=== PATIENT | female | born 1990 | race Caucasian/White ===

== ENCOUNTER 2025-06-02 02:25 | Emergency (ER) | payer BC, SELFPAY ==
[2025-06-02 02:27] VITALS: BP 135/108
[2025-06-02] MEDS: ZOFRAN 4 MG IV (03:16)
[2025-06-02] MEDS: NSS 1000 IV (03:16)
[2025-06-02] MEDS: DILAUDID 0.5 MG IV ×2 (03:16→04:03)
--- NOTE | 2025-06-02 03:28 | ED.GENMED ---
History of Present Illness
General
Chief Complaint: Problems
Source: patient
Exam Limitations: none
Time Seen by Provider: 06/02/25 02:53
Nursing documentation reviewed up to this point in time: agreed with except (Patient reports being 10 weeks , not 13 weeks )
History of Present Illness
History of Present Illness:
The patient is a 34-year-old female 1 para 0 with last menstrual period March 24 approximately 10 weeks , presenting with bleeding and cramping associated with her first . She reports that the bleeding began 3-1/2 days ago,
light spotting at that time but then this evening noted heavy bleeding passing clots accompanied with moderate lower abdominal cramping. She notes passing large clots, she is unsure if she has passed anything that looks like a gestational sac. She
has not experienced lightheadedness. She denies nausea nor vomiting. The patient resides in [place], she was scheduled for her first ultrasound next week. The patient is currently in town visiting and was attending a summer class.
No history of bleeding disorders.
Her only daily medications are Vy and vitamins.
Past History
Past History
ED Past Medical History: Other (Seasonal allergies)
ED Past Surgical History: Tonsilectomy and Other (Breast reduction)
Social History
Tobacco: Non-smoker
Alcohol: None
Personal: Single
Living: with family
Employment: Employed
Family History
Family History: Other (Noncontributory)
Phy Exam
Physical Exam
Physical Exam:
GENERAL: 34-year-old overweight woman appears her stated age, awake and alert, pleasant, appears in no acute distress. Hemodynamically stable.
EYE: anicteric
NECK: Supple, nontender, no meningismus, no significant adenopathy.
ENT: oral mucosa is moist. No rhinorrhea.
CARDIAC: Regular rate and rhythm. no murmur.
LUNGS: Clear breath sounds bilaterally, no acute respiratory distress, no wheezes/rales/rhonchi
ABDOMEN: Rotund, soft, nondistended, minimal tenderness generalized to the lower abdomen with deep palpation only, no r/g, no cvat. normoactive BS.
NEUROLOGICAL: Alert and oriented x3, no focal neuro deficits. Gait is steady.
SKIN: Warm and dry, normal color, skin intact. No rash.
MUSCULOSKELETAL: No C/C/E. peripheral pulses are full and equal b/l. No palpable tenderness.
PSYCH: Normal and appropriate interaction.
Course
Orders/Labs/Results
Orders:
Orders
06/02/25 02:54
0.9% Sodium Chloride 1000 ml [Nss] 1,000 ml IV BOLUS
06/02/25 03:04
US 1st Trimester Urgent
Comment:
Reason For Exam: LMP 03/24/25. bleeding, cramping tonight
06/02/25 03:05
HYDROmorphone [Dilaudid] 0.5 mg IV NOW STA
Ondansetron Injectable [Zofran] 4 mg IV NOW STA
06/02/25 03:11
Blood Group&Type Urgent
Beta HCG Quantitative Urgent
Is this a screen?: No
Complete Blood Count/With Diff Urgent
Comprehensive Metabolic Panel Urgent
06/02/25 03:43
ABO2 Routine
BBK Wristband Number:
Associate notified that ABO2 has been ordered: LIZABETH
Date: 06/02/25
Time: 03:23
Gate Guard ID: [id number]
06/02/25 04:01
HYDROmorphone [Dilaudid] 0.5 mg IV NOW STA
06/02/25 05:39
Pathology LDRP [LDRP Pathology] Routine
Date Specimen was Collected: 06/02/25
Pre-Operative Diagnosis: 10-week
Post-Operative Diagnosis: Completed miscarriage
Operative Procedure: Completed miscarriage
Clinical History: Approximately 10-week with last menstrual period March 24, 2025.
Gestational Age: 10 weeks
Tissue Submitted: Other
Other Tissue Submitted: Products of conception
Time Specimen placed in Formalin: 06:00
Abnormal Lab Results
06/02/25
03:11
MCV 77.4 L fL
(81.0-99.0)
MCH 26.1 L pg
(27.0-31.0)
Plt Count 424 H 10^3/uL
(130-400)
Absolute Neuts (auto) 6.9 H 10^3/uL
(1.4-6.5)
Absolute Monos (auto) 0.7 H 10^3/uL
(0.1-0.6)
Carbon Dioxide 21 L mmol/L
(22-30)
Creatinine 0.5 L mg/dL
(0.6-1.0)
Glucose 117 H mg/dl
(70-99)
06/02/25 03:11
06/02/25 03:11
Vital Signs
Initial and Last Documented VS:
Initial Vital Signs
Temp Pulse Resp BP Pulse Ox
98.2 F 102 20 135/108 98
06/02/25 02:27 06/02/25 02:27 06/02/25 02:27 06/02/25 02:27 06/02/25 02:27
Last Documented Vital Signs
Temp Pulse Resp BP Pulse Ox
98.2 F 102 20 135/108 98
06/02/25 02:27 06/02/25 02:27 06/02/25 02:27 06/02/25 02:27 06/02/25 03:37
Information
Weeks gestation: N/A (complete miscarriage at 10 weeks gestation)
Location: N/A (Complete miscarriage at 10 weeks gestation.)
MDM/Problems Addressed
Differential Diagnosis Includes:
The Differential Diagnosis includes, in no particular order and is not limited to:
1. Threatened miscarriage
2. Inevitable miscarriage
3. Subchorionic hemorrhage
4. Ectopic
5. Molar
6. Placental abruption
7. Intrauterine clot
8. Uterine fibroids
9. Hemorrhagic ovarian cyst
10. Urinary tract infection
MDM/Problems Addressed:
First trimester vaginal bleeding
Will check labs including quantitative hCG, type and Rh, CBC, complete metabolic panel.
Will initiate IV fluid with normal saline solution bolus. Will give small IV dose of Dilaudid along with Zofran as patient reports frequent side effects of nausea with anesthesia and pain medications.
Will plan for first trimester ultrasound.
Will consider CANTEEN OPERATOR consult depending on clinical course and ultrasound result.
*Radiology
Radiology exam reviewed: radiology read reviewed
*Pulse Oximetry
SaO2: 98
Oxygen Mode of Delivery: Room air
Patient hypoxic: no
*Critical Care Note
Total Time (30-74mins, 75-104mins- exclusive of procedures): Not Applicable
Update Note
Update Note:
06:15
Patient passed a large clot accompanied with some disorganized products of conception/ tissue and after doing so cramping and bleeding have markedly subsided.
She is now resting comfortably.
She remains hemodynamically stable.
Abdomen is soft without appreciable tenderness.
Ultrasound shows no intrauterine gestational sac. Endometrium measures 9.2 mm in thickness. No evidence for retained products of conception.
Labs revealed normal CBC. Type and Rh is O+. Beta hCG is quite low at 6000.
These results are all consistent with spontaneous miscarriage, likely completed.
Will continue to observe in the ER with plan to discharge to home with recommendations for follow-up with her melter clerk upon returning home this week.
Discussed importance of pelvic rest. Staying well-hydrated on a daily basis.
Products of conception have been sent to the lab/pathology.
ED Attending Note
-
Portions of this chart may have been created with voice recognition software.� Occasional wrong word or��sound alike� substitutions may have occurred due to the inherent limitations of voice recognition software.
Discharge Plan
Departure
Patient Disposition: Home (Routine Discharge)
Date of Disposition: 06/02/25
Time of Disposition: 06:27
Patient with high blood pressure during this ER visit?: No
Condition: Good
Discharge Problem:
Spontaneous miscarriage
Instructions: Miscarriage (DC)
Prescriptions:
No Action
norgestimate-ethinyl estradiol [Sprintec (28)] 1 TAB tablet
1 tab PO DAILY
clarithromycin 500 MG tablet extended release 24 hr
1,000 mg PO DAILY
codeine-guaifenesin [Iophen C-NR] 473 ML liquid
10 ml PO Q6 PRN (Reason: cough)
albuterol sulfate 1 PUFF HFA aerosol inhaler
2 puff inhalation R Q4HPRN PRN (Reason: wheezing) Qty: 1 0RF
Referrals:
PRIVATE,PHYSICIAN [Family Provider, Internal Medicine]
Activity Restrictions/Additional Instructions:
Follow-up with your melter clerk this week for recheck.
Interventions
Interventions:
*Risk Screen - Suicide Last Done: 06/02/25 02:27
*General Assessment Last Done: 06/02/25 02:27
*Neglect/Abuse Screening Last Done: 06/02/25 02:27
*ED- Fall Risk Assessment Last Done: 06/02/25 02:27
*ED COVID-19 Vaccine History Last Done: 06/02/25 02:27
*Nursing Disposition Last Done: 06/02/25 06:45
ED-Female Genitourinary Assessment Last Done: 06/02/25 03:06
Discharge Date and Time
Discharge Date/Time: 06/02/25 06:46
Print Language: [facility]
[2025-06-02 03:29] LABS: Hematocrit 38.8 % (37.0-47.0); Hemoglobin 13.1 g/dL (12.0-16.0); Mean Corp Hgb Conc. 33.8 g/dL (33.0-37.0); Mean Corpuscular Volume 77.4 fL (81.0-99.0); Nucleated Red Blood Cells % 0 %; Platelet Count 424 10^3/uL (130-400); Red Cell Dist. Width 13.7 % (11.5-14.5)
[2025-06-02 03:41] LABS: ALT (SGPT) 11 U/L (0-35); AST (SGOT) 18 U/L (14-36); Albumin 4.6 g/dl (3.5-5.0); Alkaline Phosphatase 77 U/L (38-126); Blood Urea Nitrogen 10 mg/dl (7-17); Calcium 9.5 mg/dl (8.4-10.2); Carbon Dioxide 21 mmol/L (22-30); Chloride 106 mmol/L (98-107); Glucose 117 mg/dl (70-99); Potassium 4.4 mmol/L (3.5-5.1); Sodium 136 mmol/L (135-145); Total Protein 7.4 g/dl (6.3-8.2); eGFR > 60.00
[2025-06-02 03:59] LABS: Beta HCG Quantitative 6032.90 mIU/ml
== END 2025-06-02 06:46 | disposition home or self-care (01) ==
LOC: EMR 02:25
PROVIDERS: EMERGENCY PHYSICIAN Emergency Medicine
DX: O03.9 Complete or unspecified spontaneous abortion without complication (principal); Z3A.10 10 weeks gestation of pregnancy
CPT/HCPCS: 99284; 96374; 96375; 96376; 96361; 76801; 80053; 84702; 85025; 86900; 86901; 88305